=== PATIENT | male | born 1950 | race Caucasian/White ===

== ENCOUNTER 2016-10-18 17:58 | Emergency (ER) | payer MEDICAID, OTHER ==
[2016-10-18 18:07] VITALS: BMI 22.6
[2016-10-18 18:13] VITALS: TEMP 97.8
--- NOTE | 2016-10-18 20:31 | CT ---
EXAM: CT Head Without Intravenous Contrast CLINICAL HISTORY: 66 years old, male; Condition or disease; Headache; Headache not specified; Additional info: Posterior headache TECHNIQUE: Axial computed tomography images of the head/brain without intravenous contrast. This CT exam was performed using one or more of the following dose reduction techniques: automated exposure control, adjustment of the mA and/or kV according to patient size, and/or use of iterative reconstruction technique. EXAM DATE/TIME: Exam ordered 10/18/2016 7:22 PM COMPARISON: No relevant prior studies available. FINDINGS: Brain: An 8mm focal area of low density is noted in the subcortical white matter of the right frontotemporal lobe. No hemorrhage. No edema. Ventricles: Unremarkable. No ventriculomegaly. Bones/joints: Unremarkable. No acute fracture. Soft tissues: Unremarkable. Sinuses: Unremarkable as visualized. No acute sinusitis. Mastoid air cells: Unremarkable as visualized. No mastoid effusion. IMPRESSION: Focal area of low density noted in the subcortical white matter of the right frontoparietal lobe. This could represent an area of small vessel ischemic change/lacunar infarct. An MRI might be helpful
[2016-10-18 20:48] VITALS: BP 139/76; PULSE 92; RESP 19
--- NOTE | 2016-10-18 20:49 | C.PDOC ---
History Of Present Illness Pt c/o occipital sharp headache shooting to his neck/shoulders. Time Seen by Provider: 10/18/16 18:56 Chief Complaint (Nursing): Headache History Per: Patient Onset/Duration Of Symptoms: Hrs (since this morning), Intermittent Episodes Current Symptoms Are (Timing): Still Present Severity: Moderate Quality: Sharp Associated Symptoms: denies: Photophobia, Blurred Vision, Nausea, Vomiting, Extremity Weakness Additional History Per: Prior Records Past Medical History Reviewed: Historical Data, Nursing Documentation, Vital Signs Vital Signs: Last Vital Signs Temp 97.8 F 10/18/16 19:41 Pulse 115 H 10/18/16 18:08 Resp 20 10/18/16 18:08 BP 144/87 10/18/16 18:08 Pulse Ox 97 10/18/16 18:08 - Medical History PMH: No Chronic Diseases Surgical History: No Surg Hx Family History: States: Unknown Family Hx - Social History Hx Tobacco Use: No Hx Alcohol Use: No Hx Substance Use: No - Immunization History Hx Tetanus Toxoid Vaccination: No Hx Influenza Vaccination: No Hx Pneumococcal Vaccination: No Review Of Systems Except As Marked, All Systems Reviewed And Found Negative. Constitutional: Negative for: Fever, Weakness Eyes: Negative for: Pain, Vision Change ENT: Negative for: Nose Congestion, Throat Pain Cardiovascular: Negative for: Chest Pain Respiratory: Negative for: Shortness of Breath Gastrointestinal: Negative for: Nausea, Vomiting, Abdominal Pain Musculoskeletal: Negative for: Back Pain Skin: Negative for: Rash Neurological: Negative for: Weakness, Numbness, Seizures, Altered Mental Status Physical Exam - Physical Exam Appears: Non-toxic, No Acute Distress Skin: Normal Color, Warm, Dry, No Rash Head: Atraumatic, Normacephalic Eye(s): bilateral: Normal Inspection, PERRL, EOMI Neck: Normal ROM, No Midline Cervical Tenderness, No Step Off Deformity, Supple Chest: Symmetrical, No Deformity Cardiovascular: Rhythm Regular Respiratory: Normal Breath Sounds, No Accessory Muscle Use Gastrointestinal/Abdominal: Soft, No Tenderness Extremity: Normal ROM Neurological/Psych: Oriented x3, Normal Speech, Normal Cognition, Normal Cranial Nerves, No Cerebellar Signs, Normal Motor, Normal Sensation Gait: Steady ED Course And Treatment ECG: Interpreted By Me, Viewed By Me ECG Rhythm: Sinus Rhythm ECG Interpretation: No Acute Changes Rate From EC O2 Sat by Pulse Oximetry: 97 Pulse Ox Interpretation: Normal - CT Scan/US CT head Other Rad Studies (CT/US): Read By Radiologist, Radiology Report Reviewed CT/US Interpretation: IMPRESSION: Focal area of low density noted in the subcortical white matter of the right. frontoparietal lobe. This could represent an area of small vessel ischemic. change/lacunar infarct. An MRI might be helpful Reassessment Condition: Improved Disposition Counseled Patient/Family Regarding: Studies Performed, Diagnosis, Need For Followup - Disposition Disposition: HOME/ ROUTINE Disposition Time: 20:50 Condition: IMPROVED Additional Instructions: Follow up with a primary doctor for further evaluation, including MRI of the brain. Return to the ER if you develop vomiting, weakness, numbness, severe headache, worsening of symptoms or if you have any other concerns. Prescriptions: Acetaminophen [Tylenol Extra Strength] 2 tab PO Q6 PRN #30 tablet PRN Reason: Pain, Moderate (4-7) Instructions: Acute Headache (ED) - Clinical Impression Clinical Impression: Occipital headache
[2016-10-18 20:50] VITALS: O2SAT 97
== END 2016-10-18 20:59 | disposition home or self-care (01) ==
LOC: C.ER 17:58
DX: R51 Headache (principal)